=== PATIENT | male | born 1950 | race Caucasian/White ===

== ENCOUNTER → 2023-02-25 15:31 | Outpatient (BNVA) | payer MEDICARE, BC, SELFPAY | PROVIDERS: PCP Family Medicine; Visit Provider Family Medicine | DX: Z00.00 Encounter for general adult medical examination without abnormal findings (principal); R35.1 Nocturia; Z23 Encounter for immunization | CPT/HCPCS: 80053; 80061; 84153; 85025 ==

== ENCOUNTER 2024-01-13 07:23 | Outpatient (RCR) | payer MEDICARE, BC, SELFPAY | END 2024-02-07 23:59 | disposition home or self-care (01) | LOC: SPT 07:23 | PROVIDERS: PCP Family Medicine; Visit Provider Orthopaedic Surgery | DX: M17.12 Unilateral primary osteoarthritis, left knee (principal) | CPT/HCPCS: 97110; 97161 ==

== ENCOUNTER 2024-02-08 06:00 | Outpatient (RCR) | payer MEDICARE, SELFPAY | END 2024-03-09 23:59 | disposition home or self-care (01) | LOC: SPT 06:00 | PROVIDERS: PCP Family Medicine; Visit Provider Orthopaedic Surgery | DX: M17.12 Unilateral primary osteoarthritis, left knee (principal) | CPT/HCPCS: 97110 ==

== ENCOUNTER → 2024-03-06 11:42 | Outpatient (BNVA) | payer MEDICARE, SELFPAY | PROVIDERS: PCP Family Medicine; Visit Provider Family Medicine | DX: Z00.00 Encounter for general adult medical examination without abnormal findings (principal); R35.1 Nocturia; I65.29 Occlusion and stenosis of unspecified carotid artery | CPT/HCPCS: 80053; 80061; 84153; 85025 ==

== ENCOUNTER 2024-03-10 06:00 | Outpatient (RCR) | payer MEDICARE, SELFPAY | END 2024-03-10 23:59 | disposition home or self-care (01) | LOC: SPT 06:00 | PROVIDERS: PCP Family Medicine; Visit Provider Orthopaedic Surgery | DX: M17.12 Unilateral primary osteoarthritis, left knee (principal) | CPT/HCPCS: 97110 ==

== ENCOUNTER → 2024-03-23 12:00 | Outpatient (BNVA) | payer MEDICARE, BC, SELFPAY | PROVIDERS: PCP Family Medicine; Visit Provider Family Medicine | DX: L98.9 Disorder of the skin and subcutaneous tissue, unspecified (principal) | CPT/HCPCS: 88304 ==

== ENCOUNTER 2024-12-14 07:26 | Outpatient (RCR) | payer MEDICARE, BC, SELFPAY | END 2025-01-07 23:59 | disposition home or self-care (01) | LOC: SPT 07:26 | PROVIDERS: PCP Family Medicine; Visit Provider Orthopaedic Surgery | DX: Z98.890 Other specified postprocedural states (principal) | CPT/HCPCS: 97110; 97161 ==

== ENCOUNTER 2025-01-14 17:45 | Outpatient (RCR) | payer MEDICARE, BC, SELFPAY | END 2025-02-06 23:59 | disposition home or self-care (01) | LOC: SPT 17:45 | PROVIDERS: PCP Family Medicine; Visit Provider Orthopaedic Surgery | DX: Z98.890 Other specified postprocedural states (principal) | CPT/HCPCS: 97110 ==

== ENCOUNTER 2025-02-07 05:00 | Outpatient (RCR) | payer MEDICARE, BC, SELFPAY | END 2025-03-09 23:59 | disposition home or self-care (01) | LOC: SPT 05:00 | PROVIDERS: PCP Family Medicine; Visit Provider Orthopaedic Surgery | DX: M62.81 Muscle weakness (generalized) (principal) | CPT/HCPCS: 97110 ==

== ENCOUNTER → 2025-03-07 09:19 | Outpatient (BNVA) | payer MEDICARE, SELFPAY | PROVIDERS: PCP Family Medicine; Visit Provider Family Medicine | DX: Z00.00 Encounter for general adult medical examination without abnormal findings (principal); R35.1 Nocturia; I10 Essential (primary) hypertension; I65.29 Occlusion and stenosis of unspecified carotid artery | CPT/HCPCS: 80053; 80061; 84153; 85025 ==

== ENCOUNTER 2025-03-10 05:00 | Outpatient (RCR) | payer MEDICARE, BC, SELFPAY | END 2025-04-08 23:59 | disposition home or self-care (01) | LOC: SPT 05:00 | PROVIDERS: PCP Family Medicine; Visit Provider Orthopaedic Surgery | DX: Z98.890 Other specified postprocedural states (principal) | CPT/HCPCS: 97110 ==

== ENCOUNTER → 2025-04-04 10:52 | Outpatient (BNVA) | payer MEDICARE, BC, SELFPAY | PROVIDERS: PCP Family Medicine; Visit Provider Student in an Organized Health Care Education/Training Program | DX: M75.102 Unspecified rotator cuff tear or rupture of left shoulder, not specified as traumatic (principal); Z98.890 Other specified postprocedural states | CPT/HCPCS: 73030; 99204 ==

== ENCOUNTER 2025-05-07 07:37 | Outpatient (CLI) | payer MEDICARE, BC, SELFPAY ==
--- NOTE | 2025-05-07 07:47 | MR_ITS ---
WS: [id number] MRI LEFT SHOULDER ARTHROGRAM HISTORY: Chronic shoulder pain. Limited range of motion. COMPARISON: 10/09/2016 TECHNIQUE: Pre and postcontrast imaging. Gadolinium mixture was injected under fluoroscopy. Coronal T1 fat sat, sagittal T2 fat sat, coronal T2 fat sat, axial proton density, axial T1 nonfat saturation views are submitted. Prearthrogram: Moderate AC joint arthritis. Small osteophytes and synovitis at the AC joint. Very slight downsloping of the acromion with mild subacromial impingement. No significant amount of fluid in the subacromial or subdeltoid bursa. No os acromion. Biceps tendon is present in the bicipital groove with a small amount of fluid. Tendinopathy and increased signal within the biceps tendon through the rotator cuff interval. No tear identified. Mild atrophy of the subscapularis and supraspinatus muscles with no edema. Slightly greater atrophy of the subscapularis muscle. There is tendinopathy in the distal subscapularis tendon but no tear. Moderate thickening and increased T2 signal in the distal supraspinatus tendon. Signal is most consistent with tendinopathy involving the articular surface. No tear identified. Infraspinatus tendon is intact. No labral tear identified. There is intrasubstance degeneration in the superior labrum and a small amount of adjacent fluid. Mild narrowing of the glenohumeral joint. Coracohumeral ligament is intact. Post arthrogram: No full-thickness rotator cuff tear identified. There is a tear within the distal subscapularis tendon that distends with contrast. Tear extends to the distal interstitial tendon by 2 cm. There is no contrast extending into the subacromial or subdeltoid bursal fluid. There is an additional tear in the distal subscapularis tendon which fills with contrast. There are small well-circumscribed low signal foci within the tendon sheath of the biceps tendon. These are best noted on the axial postcontrast imaging. No labral tear identified. MR/MR shoulder LT wo/w con [id number] IMPRESSION: 1. Distal interstitial tear subscapularis tendon extends over a length of 2 cm . 2. Smaller distal interstitial tear supraspinatus tendon. 3. Well-circumscribed foci in the biceps tendon sheath in the bicipital groove x2 consistent with small loose bodies. 4. Moderate AC joint arthritis. 5. Mild downsloping of the acromion with subacromial impingement. 6. Biceps tendinopathy through the rotator cuff interval. 7. Distal supraspinatus tendinopathy. 8. Mild atrophy of the subscapularis and supraspinatus muscles.
--- NOTE | 2025-05-07 08:00 | IR_ITS ---
WS: [id number] LEFT SHOULDER ARTHROGRAM UNDER FLUOROSCOPY. PRIOR TO MRI EVALUATION. HISTORY: shoulder pain COMPARISON: Radiograph 04/04/2025, prior MRI shoulder 10/09/2016 FLUOROSCOPY TIME: 0min [id number] # of spot films: 2 Procedure, risks and complications were explained to the patient. Consent has been obtained. Under fluoroscopic guidance the skin is marked over the medial superior third of the humeral head, cleansed with ChloraPrep and anesthetized with lidocaine. 22- gauge spinal needle is inserted to the cortex of the humeral head. Test injection with Omnipaque reveals the needle is appropriately positioned in the joint. A mixture of 10 cc sterile saline, 5 cc Omnipaque and 0.1 mmol gadolinium are injected under fluoroscopic guidance. Patient tolerated the joint distention well. No complications. Good contrast opacification of the joint space. IR/IR arthrogram shoulderLT [id number] IMPRESSION: Uncomplicated LEFT shoulder joint injection prior to MRI.
[2025-05-07] MEDS: gadobenate dimeglumine 20 mL vial 3 ML IV (09:02)
[2025-05-07] MEDS: iohexol 240 mg/mL 50 mL Btl 20 ML INTRA-ARTI (09:37)
== END 2025-05-07 07:38 | disposition home or self-care (01) ==
LOC: RAD 07:39
PROVIDERS: PCP Family Medicine; Visit Provider Student in an Organized Health Care Education/Training Program
DX: M75.102 Unspecified rotator cuff tear or rupture of left shoulder, not specified as traumatic (principal); Z98.890 Other specified postprocedural states; G89.29 Other chronic pain; M75.112 Incomplete rotator cuff tear or rupture of left shoulder, not specified as traumatic; R93.89 Abnormal findings on diagnostic imaging of other specified body structures; M19.012 Primary osteoarthritis, left shoulder; M25.812 Other specified joint disorders, left shoulder; M75.22 Bicipital tendinitis, left shoulder; M67.814 Other specified disorders of tendon, left shoulder; M62.512 Muscle wasting and atrophy, not elsewhere classified, left shoulder; S46.812A Strain of other muscles, fascia and tendons at shoulder and upper arm level, left arm, initial encounter; X58.XXXA Exposure to other specified factors, initial encounter; M25.712 Osteophyte, left shoulder; M65.912 Unspecified synovitis and tenosynovitis, left shoulder
CPT/HCPCS: 23350; 73223; 77002; J9999; Q9966